=== PATIENT | male | born 1950 | race Caucasian/White ===

== ENCOUNTER 2017-12-12 15:11 | Emergency (ER) | payer BC ==
[2017-12-12] MEDS ORDERED: KETOROLAC 30 MG/ML VIAL IM ONE (15:25)
--- NOTE | 2017-12-12 15:32 | Emergency Department Record ---
History of Present Illness - General Stated complaint: KNEE PAIN POPPED OUT Time Seen by Provider: 12/12/17 15:24 Source: Patient Mode of Arrival: Wheelchair Limitations: No limitations - History of Present Illness Initial comments: The patient is here due to R knee pain. He has been having mild R knee pain with walking and then about 2 hours ago was walking at work and felt a sharp pain and felt and heard a "POP" with the R knee then becoming very painful. He has not been able to walk on it since. The patient denies any other injuries. MD Complaint: Extremity pain Onset/Timin -: Hour(s) - Related Data Previous Rx's Medication Instructions Recorded Naproxen [Naprosyn] 500 mg PO BID #14 tablet. 12/12/17 Allergies Allergy/AdvReac Type Severity Reaction Status Date / Time aspirin [ASPIRIN] Allergy Unknown SWELLING Verified 12/12/17 15:38 OF THE LIPS Review of Systems Constitutional: Denies: Chills, Fever Past Medical History - SOCIAL HISTORY Smoking Status: Never smoker - RESPIRATORY Hx Respiratory Disorders: Yes - CARDIOVASCULAR Hx Cardio Disorders: Yes Hx Deep Vein Thrombosis: Yes (Left thigh, May 2015 on asa) - NEURO Hx Neuro Disorders: Yes Hx Weakness: Yes (Intermittent numbness l side, last Jan 2015. Neg workup) - GI Hx GI Disorders: Yes Hx Reflux: Yes (On Omeprazole, controlled) Comment:: Left Inguinal hernia x 1mo - Hx Genitourinary Disorders: No - ENDOCRINE Hx Endocrine Disorders: No - MUSCULOSKELETAL Hx Musculoskeletal Disorders: Yes Comment:: S/P back surgery > 20 yrs ago - PSYCH Hx Psych Problems: No - HEMATOLOGY/ONCOLOGY Hx Hematology/Oncology Disorders: Yes Hx Cancer: Yes (BCC excised from back) Hx Clotting Problems: Yes (DVT L thigh 06/03) Family Medical History Hx Cancer: Mother Hx Resp Disorders: Father Physical Exam - General General Appearance: Alert, Oriented x3, Cooperative, No acute distress - Head Head exam: Atraumatic, Normocephalic - Eye Eye exam: Normal appearance, PERRL - Extremities Extremities exam: Normal inspection, Normal capillary refill, Tenderness (There is diffuse anterior pain to palpation.), Other (The RLE is NVI with normal pulses distally.). negative: Calf tenderness, Full ROM (There is decreased flexion due to pain.), Joint swelling, Pedal edema Course - Reevaluation(s) Reevaluation #1: The patient is doing a little better after the pain shot. I did explain to him the need to see his PCP tomorrow for recheck and to possibly have a R knee MRI ordered. The patient does have an appointment tomorrow with his PCP. 12/12/17 16:30 Medical Decision Making - Data Complexity MDM Data: X-Ray Ordered and/or Reviewed - Radiology Data Radiology results: Report reviewed (R knee: Neg for acute changes. Prob loose bodies medial compartment.) Disposition Disposition: Discharge Clinical Impression: Knee pain, acute Qualifiers: Laterality: right Qualified Code(s): M25.561 - Pain in right knee Disposition: Home, Self-Care Condition: (2) Stable Instructions: Knee Pain (ED) Additional Instructions: Please ice and elevate the R knee when possible and use the Immobilizer while walking along with the crutches. Do not walk on the R leg. Take the [place] and Naprosyn for pain. Please see your family doctor tomorrow for recheck and possibly have an MRI ordered of the R knee. Prescriptions: Naproxen [Naprosyn] 500 mg PO BID #14 tablet.dr Forms: Patient Portal Access Time of Disposition: 16:33 Quality - Quality Measures Quality Measures: N/A - Blood Pressure Screening View Details: Yes Does Patient Have Any of the Following: Active Dx of HTN Blood Pressure Classification: Hypertensive Reading Systolic Measurement: 151 Diastolic Measurement: 104 Screening for High Blood Pressure: Patient Exclusion, Hx of HTN [G9744]
[2017-12-12] MEDS ORDERED: HYDROCODONE/APAP 5/325MG TABLET PO ONE (16:29)
--- NOTE | 2017-12-14 10:51 | RADIOLOGY REPORT ---
DATE: 12/12/2017. EXAM: MULTIPLE VIEWS OF THE RIGHT KNEE. HISTORY: THE PATIENT HAS HAD RIGHT KNEE PAIN FOR A LONG TIME. TECHNIQUE: Four views of the right knee are provided. COMPARISON: No comparison examinations are available. FINDINGS: There is no radiographic evidence of fracture or dislocation of the right knee. Moderate medial compartment joint space loss is noted with mild subchondral sclerosis. Minimal marginal osteophyte formation is noted. There is a 2.5 mm soft tissue density identified within the region of the medial joint space. This finding may represent an intra-articular loose body. IMPRESSION: DEGENERATIVE CHANGES OF THE RIGHT KNEE ARE NOTED WITHOUT RADIOGRAPHIC EVIDENCE OF AN ACUTE PROCESS INVOLVING THE RIGHT KNEE. QUESTIONABLE LOOSE BODY IS NOTED WITHIN THE MEDIAL COMPARTMENT OF THE RIGHT KNEE. IF THERE IS FURTHER CLINICAL CONCERN, AN MRI OF THE RIGHT KNEE CAN BE OBTAINED FOR FURTHER EVALUATION. JOB NUMBER: [id number] MTDD
== END 2017-12-12 17:06 | disposition home or self-care (01) ==
LOC: ER 15:11
DX: M25.561 Pain in right knee (principal); I10 Essential (primary) hypertension
CPT/HCPCS: 99283 ×2; 96372; 73562; J1885

== ENCOUNTER 2017-12-26 09:56 | Day surgery (SDC) | payer BC ==
[~2017-12-26 09:56] MED LIST: ACETAMINOPHEN 1,000 MG/100 ML BTL IV ONE
[2017-12-26] MEDS ORDERED: SEVOFLURANE 250 ML INH ONE (09:57)
[2017-12-26] MEDS ORDERED: LIDOCAINE 2% MDV (20MG/ML) 20ML VIAL IV ONE (09:57)
[2017-12-26] MEDS ORDERED: PROPOFOL 10 MG/ML VIAL IV ONE (09:57)
[2017-12-26] MEDS ORDERED: KETOROLAC 30 MG/ML VIAL IVP ONE (09:57)
[2017-12-26] MEDS ORDERED: KETAMINE HCL 100MG/1ML VIAL INJ ONE (09:57)
--- NOTE | 2017-12-27 10:50 | Operative Note ---
DATE OF SURGERY: 12/26/2017 Surgeon: Ollie Tavares DO PREOPERATIVE DIAGNOSES: 1. Torn medial and lateral meniscus of the right knee. 2. Chondromalacia of the right knee. POSTOPERATIVE DIAGNOSES: 1. Torn medial and lateral meniscus of the right knee. 2. Chondromalacia of the medial femoral condyle, patella, and trochlea of the right knee. OPERATION: 1. Arthroscopic partial medial and lateral meniscectomy, right knee. 2. Arthroscopic chondroplasty of the medial femoral condyle, right knee. PROCEDURE: This 66-year-old male was taken to the operating room and placed in the supine position on the operating room table where spinal anesthesia was induced. The right lower extremity was elevated. It was exsanguinated and the tourniquet inflated to 300 mmHg. Arthroscopic knee milan applied. Right knee prepped with Hibiclens and draped in the usual sterile fashion. An inferolateral portal was established for the 4 mm arthroscope and initial evaluation of the joint demonstrated normal appearance of the suprapatellar pouch but the patient did have grade 2 chondromalacia of the trochlea and the patella. Probing through an inferomedial portal did not reveal any gross instability and it was not further disturbed. The medial compartment was entered and a complex tear of the posterior horn of the medial meniscus was present. There was a radial tear near the root of the medial meniscus and horizontal cleavage tear extending medially to about the 1-o'clock position utilizing the basket forceps. We resected back to the apex of the tear at about the 11-o'clock position and then smoothed and tapered in each direction to restore stability to the posterior horn of the medial meniscus. Once it was confirmed to be stable, we transferred our attention to the medial femoral condyle which demonstrated what I feel are grade 3 changes with loose fragment of articular cartilage being present. Utilizing the rotating shaver, chondroplasty of the medial femoral condyle was present to remove loose flaps of articular cartilage. We then directed our attention to the intracondylar notch, which was seen to be normal. The lateral compartment was entered and a tear of the lateral meniscus was also present, horizontal cleavage tear of the posterior horn, and a small flap near the posterior root utilizing the basket forceps and rotating shaver. We resected unstable fragments of the lateral meniscus. This tear extended from about the 10-o'clock position around to the posterior attachment. Did not enter the root of the meniscus. This was resected with a basket forceps and then probed to confirm restored stability. The joint was then copiously irrigated and suctioned. All areas were examined. No additional findings were present. The joint was suctioned. The instruments were removed. The portals infiltrated with 0.25% Marcaine with epinephrine. The puncture sites were sutured with 4-0 nylon suture and the patient taken to the recovery room in satisfactory condition. GROSS PATHOLOGY: This patient demonstrated tears of both the medial and lateral meniscus as described above with grade 2 chondromalacia of the patella and trochlea with grade 3 changes noted at the medial femoral condyle. CC: DO MIKAL Fernández
== END 2017-12-26 12:30 | disposition home or self-care (01) ==
LOC: SUR 09:56
PROVIDERS: ATTEND Orthopaedic Surgery
DX: S83.231A Complex tear of medial meniscus, current injury, right knee, initial encounter (principal); M94.261 Chondromalacia, right knee; M22.41 Chondromalacia patellae, right knee
CPT/HCPCS: 29883; 01400; J1885